=== PATIENT | male | born 1940 | race Caucasian/White ===

== ENCOUNTER 2017-08-14 12:03 | Day surgery (SDC) | payer MEDICARE, OTHER ==
[~2017-08-14 12:03] MED LIST: Sodium Chloride 0.9% 10 ML Syringe FLUSH PRN
[2017-08-14] MEDS ORDERED: Lactated Ringers 1,000 ML IV SCH (13:00)
[2017-08-14] MEDS ORDERED: Propofol 200 MG/20 ML SDV IV ONE (14:00)
--- NOTE | 2017-08-15 07:49 | OR ---
DATE OF OPERATION: 08/14/2017 SURGEON: Conner uMnoz MD PREOPERATIVE DIAGNOSIS: Cataract left eye. POSTOPERATIVE DIAGNOSIS: Cataract left eye. OPERATION PERFORMED: Phacoemulsification of cataract left eye with placement of an Coyne, model ZCB00, 22.0 diopter foldable posterior chamber intraocular lens. COATER CARBON PAPER: None. DESCRIPTION OF PROCEDURE: Peribulbar anesthetic was performed using a mixture of 2% lidocaine with Wydase. The patient was prepped and draped in the usual fashion. A 3 mm fornix based conjunctival flap was performed at the 10 o'clock position. Hemostasis was obtained using diathermy, and a 2.8 mm grooved near clear corneal incision was then made. A stab incision was made into the anterior chamber at the 12 o'clock position and a second stab wound incision was made underlying the grooved near clear corneal incision. Viscoat was instilled into the anterior chamber, and a continuous tear capsulotomy was performed. Hydrodissection was accomplished with balanced salt solution, and the nucleus was removed in a divide and conquer fashion. The remaining cortical material was removed with the irrigation and aspiration unit. Viscoat was instilled into the anterior chamber, and an Coyne, model ZCB00, 22.0 diopter, foldable, posterior chamber intraocular lens was placed into the capsular bag, the haptics being positioned at the 1 and 7 o'clock positions. The residual Viscoat was removed from the anterior chamber and the anterior chamber reformed with balanced salt solution. The wound was checked and noted to be watertight. The conjunctiva was secured in its original position with diathermy. Alphagan and Maxitrol Ointment were then placed into the patient's eye. The patient tolerated the procedure well and it was without complication. Elapsed phacoemulsification time was 28.5 seconds. Postoperative instructions as related to activities, as well as medications, were reviewed with the patient. The patient was instructed to return to see me on the day following surgery for the first postoperative check. The patient was also instructed to contact me prior to that time if the patient were to have any problems. ADDENDUM: Because of minor discomfort, 0.2 mL of a mixture of lidocaine, phenylephrine, and balanced salt solution were instilled into the anterior chamber at the time of surgery. This resolved the discomfort. /[id number] DEG/MODL CC: JOSE LUIS SAGASTUME DO MTDD
== END 2017-08-14 15:26 | disposition home or self-care (01) ==
LOC: FB.SDS 12:03
PROVIDERS: ATTEND Ophthalmology
DX: H26.9 Unspecified cataract (principal); I10 Essential (primary) hypertension; K21.9 Gastro-esophageal reflux disease without esophagitis; Z79.82 Long term (current) use of aspirin; Z79.899 Other long term (current) drug therapy; Z88.8 Allergy status to other drugs, medicaments and biological substances; Z87.891 Personal history of nicotine dependence; Z90.49 Acquired absence of other specified parts of digestive tract; Z96.642 Presence of left artificial hip joint
CPT/HCPCS: 00142; 66984; C1780; J2704; J7120

== ENCOUNTER 2017-09-03 09:56 | Day surgery (SDC) | payer MEDICARE, OTHER ==
[2017-09-03] MEDS ORDERED: Sodium Chloride 0.9% 10 ML Syringe FLUSH PRN (10:15)
[2017-09-03] MEDS ORDERED: Propofol 200 MG/20 ML SDV IV ONE (11:55)
--- NOTE | 2017-09-04 10:46 | OR ---
DATE OF OPERATION: 09/03/2017 SURGEON: Conner Munoz MD PREOPERATIVE DIAGNOSIS: Cataract, right eye. POSTOPERATIVE DIAGNOSIS: Cataract, right eye. OPERATION PERFORMED: Phacoemulsification of cataract right eye with the placement of an Coyne, model ZCB00, 21.5 diopter, foldable, posterior chamber intraocular lens. SKEIN BLEACHER: None. DESCRIPTION OF PROCEDURE: Peribulbar anesthetic was performed using a mixture of 2% lidocaine with Wydase. The patient was prepped and draped in the usual fashion. A 3 mm fornix based conjunctival flap was performed at the 10 o'clock position. Hemostasis was obtained using diathermy, and a 2.8 mm grooved near clear corneal incision was then made. A stab incision was made into the anterior chamber at the 12 o'clock position and a second stab wound incision was made underlying the grooved near clear corneal incision. Viscoat was instilled into the anterior chamber, and a continuous tear capsulotomy was performed. Hydrodissection was accomplished with balanced salt solution, and the nucleus was removed in a divide and conquer fashion. The remaining cortical material was removed with the irrigation and aspiration unit. Viscoat was instilled into the anterior chamber, and an Coyne, model ZCB00, 21.5 diopter, foldable, posterior chamber intraocular lens was placed into the capsular bag, the haptics being positioned at the 1 and 7 o'clock positions. The residual Viscoat was removed from the anterior chamber and the anterior chamber reformed with balanced salt solution. The wound was checked and noted to be watertight. The conjunctiva was secured in its original position with diathermy. Alphagan and Maxitrol Ointment were then placed into the patient's eye. The patient tolerated the procedure well and it was without complication. Elapsed phacoemulsification time was 26.2 seconds. Postoperative instructions as related to activities as well as medications were reviewed with the patient. The patient was instructed to return to see me on the day following surgery for the first postoperative check. The patient was also instructed to contact me prior to that time if he were to have any problems. /[id number] DEG/MODL CC: JOSE LUIS SAGASTUME DO
== END 2017-09-03 13:30 | disposition home or self-care (01) ==
LOC: FB.SDS 09:56
PROVIDERS: ATTEND Ophthalmology
DX: H26.9 Unspecified cataract (principal); I10 Essential (primary) hypertension; K21.9 Gastro-esophageal reflux disease without esophagitis; Z87.891 Personal history of nicotine dependence; Z79.82 Long term (current) use of aspirin; Z79.899 Other long term (current) drug therapy; Z88.8 Allergy status to other drugs, medicaments and biological substances
CPT/HCPCS: 00142; 66984; C1780; J2704; J7050

== ENCOUNTER 2023-09-30 10:14 | Emergency (ER) | payer MEDICARE, OTHER ==
[2023-09-30] MEDS ORDERED: Ondansetron 4 MG/2 ML SDV IVPUSH ONE (10:44)
[2023-09-30] MEDS ORDERED: Sodium Chloride 0.9% 1,000 ML IV SCH (10:45)
[2023-09-30 10:59] LABS: HEMATOCRIT 32.8 % (38.3-50.1); HEMOGLOBIN 11.1 g/dL (12.9-17.7); MEAN CORPUSCULAR HGB CONC 33.7 g/dL (28.7-35.3); MEAN PLATELET VOLUME 8.2 fL (6.7-11.0); PLATELET COUNT,PLT 281 x10(3)uL (117-477); RED BLOOD CELL COUNT 3.68 x10(6)uL (3.90-5.90); RED CELL DISTRIBUTION WIDTH 14.8 % (12.4-15.0); WHITE BLOOD CELL COUNT,WBC 11.3 x10-3/uL (3.2-10.1)
[2023-09-30 11:08] LABS: BLOOD UREA NITROGEN,BUN 63 mg/dL (7-18); BUN/CREATININE RATIO 26.3 (9-20); CALCIUM 8.3 mg/dL (8.6-10.2); CARBON DIOXIDE,CO2 23 mmol/L (21-32); CHLORIDE,CL 100 mmol/L (100-110); ESTIMATED GFR 26 mL/min (>60); GLUCOSE RANDOM 147 mg/dL (80-116); POTASSIUM,K 5.1 mmol/L (3.5-5.3); SODIUM,NA 135 mmol/L (135-145)
[2023-09-30 11:18] LABS: CREATININE 2.4 mg/dL (0.70-1.30)
[2023-09-30 11:25] LABS: LYMPHOCYTES PERCENT MAN 4 % (13-37); MONOCYTES PERCENT MAN 12 % (4-12); SEG NEUTROPHILS PERCENT MAN 84 % (46-82)
[2023-09-30] MEDS ORDERED: chlorproMAZINE 25 MG Tab PO ONE (14:36)
[2023-09-30] MEDS ORDERED: Prochlorperazine 10 MG/2 ML SDV IVPUSH ONE (14:57)
== END 2023-09-30 15:50 | disposition home or self-care (01) ==
LOC: FB.ED 10:14
DX: E86.0 Dehydration (principal); R06.6 Hiccough; I12.9 Hypertensive chronic kidney disease with stage 1 through stage 4 chronic kidney disease, or unspecified chronic kidney disease; N18.9 Chronic kidney disease, unspecified; D63.1 Anemia in chronic kidney disease; E66.9 Obesity, unspecified; K21.9 Gastro-esophageal reflux disease without esophagitis; Z79.899 Other long term (current) drug therapy; Z88.8 Allergy status to other drugs, medicaments and biological substances; Z87.891 Personal history of nicotine dependence
CPT/HCPCS: 36415; 74176; 80048; 85025; 96361; 96374; 96375; 99284; 99285; A9270; J0780; J2405; J7030